=== PATIENT | male | born 1965 | race African-American/Black ===

== ENCOUNTER 2017-10-22 17:59 | Emergency (ER) | payer SELFPAY ==
[~2017-10-22] VITALS: Ht 180.3 cm; Wt 80.0 kg
[2017-10-22] MEDS ORDERED: IOHEXOL 350 MG/ML 10 ML VIAL (for RAD DIAG) IVCONTRAST ONE (18:00)
[2017-10-22 18:26] VITALS: BP 130/101; PULSE 96; RESP 18; TEMP 98.2; O2SAT 97
--- NOTE | 2017-10-22 18:38 | PD ---
HPI Chief Complaint: Cardiac Complaint Time Seen by Provider: 18:17 Travel History International Travel<30 days: No Contact w/Intl Traveler<30days: No Traveled to known affect area: No History of Present Illness HPI 52yo M with PMH of CAD s/p CABG, PVD presents to the ED under police custody complaining of chest pain for 4 days. Said chest pain is squeezing, midsternal and has some left proximal arm numbness. Associated with sob. Denies any fever , abdominal pain initially but has tenderness on palpation. Pt has right leg pain for at least a week and said he is suppose to follow up with surgeon because he has decrease pulse in right leg but did not. Denies any trauma, focal weakness or numbness in legs. Pt admits to sniffing cocaine and is therefore under police custody. PFSH Past Medical History ?: Not Social History Tobacco Use: No Allergies-Medications (Allergen,Severity, Reaction): Coded Allergies: penicillin G (Verified Allergy, Unknown, 10/22/17) Reported Meds & Prescriptions Reported Meds & Active Scripts Active Reported Lasix (Furosemide) 20 Mg Tab 20 Mg PO DAILY Lisinopril 10 Mg Tab 10 Mg PO DAILY Digoxin 0.125 Mg Tab 0.125 Mg PO DAILY Plavix (Clopidogrel Bisulfate) 75 Mg Tab 75 Mg PO DAILY Coreg (Carvedilol) 12.5 Mg Tab 12.5 Mg PO BID Review of Systems Except as stated in HPI: all other systems reviewed are Neg Physical Exam Narrative GENERAL: 52yo M in mild distress. SKIN: Focused skin assessment warm/dry. HEAD: Atraumatic. Normocephalic. EYES: Pupils equal and round. No scleral icterus. No injection or drainage. ENT: No nasal bleeding or discharge. Mucous membranes pink and moist. NECK: Trachea midline. No JVD. CARDIOVASCULAR: Mildly tachycardic. No murmur appreciated. RESPIRATORY: No accessory muscle use. Clear to auscultation. Breath sounds equal bilaterally. GASTROINTESTINAL: Abdomen soft, +Epigastric and LUQ ttp. No rebound tenderness or guarding. MUSCULOSKELETAL: RLE: +DP with doppler. Leg is warm to touch. LLE: DP2+. NEUROLOGICAL: Awake and alert. No obvious cranial nerve deficits. Motor grossly within normal limits in all extremities. Normal speech. PSYCHIATRIC: Appropriate mood and affect; insight and judgment normal. Data Data Last Documented VS Vital Signs Date Time Temp Pulse Resp B/P (MAP) Pulse Ox O2 Delivery O2 Flow Rate FiO2 10/22/17 21:15 10/22/17 21:00 96 18 96 Room Air 10/22/17 18:26 98.2 Orders Orders Basic Metabolic Panel (Bmp) (10/22/17 18:30) Complete Blood Count With Diff (10/22/17 18:30) Magnesium (Mg) (10/22/17 18:30) Prothrombin Time / Inr (Pt) (10/22/17 18:30) Act Partial Throm Time (Ptt) (10/22/17 18:30) Troponin I (10/22/17 18:30) Chest, Single Ap (10/22/17 18:30) Ct Abd/Pel W Iv Contrast(Rout) (10/22/17 ) Lipase (10/22/17 19:04) Clonidine (Catapres) (10/22/17 20:15) Iohexol 350 Inj (Omnipaque 350 Inj) (10/22/17 18:00) Electrocardiogram (10/22/17 18:13) Ed Discharge Order (10/22/17 21:11) Labs Laboratory Tests Test 10/22/17 18:35 White Blood Count 4.5 TH/MM3 Red Blood Count 4.92 MIL/MM3 Hemoglobin 14.1 GM/DL Hematocrit 42.5 % Mean Corpuscular Volume 86.4 FL Mean Corpuscular Hemoglobin 28.8 PG Mean Corpuscular Hemoglobin Concent 33.3 % Red Cell Distribution Width 13.9 % Platelet Count 199 TH/MM3 Mean Platelet Volume 8.6 FL Neutrophils (%) (Auto) 61.1 % Lymphocytes (%) (Auto) 28.5 % Monocytes (%) (Auto) 9.2 % Eosinophils (%) (Auto) 0.4 % Basophils (%) (Auto) 0.8 % Neutrophils # (Auto) 2.7 TH/MM3 Lymphocytes # (Auto) 1.3 TH/MM3 Monocytes # (Auto) 0.4 TH/MM3 Eosinophils # (Auto) 0.0 TH/MM3 Basophils # (Auto) 0.0 TH/MM3 CBC Comment DIFF FINAL Differential Comment Prothrombin Time 11.7 SEC Prothromb Time International Ratio 1.2 RATIO Activated Partial Thromboplast Time 26.6 SEC Blood Urea Nitrogen 9 MG/DL Creatinine 1.34 MG/DL Random Glucose 91 MG/DL Calcium Level 8.8 MG/DL Magnesium Level 2.1 MG/DL Sodium Level 141 MEQ/L Potassium Level 3.6 MEQ/L Chloride Level 109 MEQ/L Carbon Dioxide Level 23.1 MEQ/L Anion Gap 9 MEQ/L Estimat Glomerular Filtration Rate 68 ML/MIN Troponin I LESS THAN 0.02 NG/ML Lipase 64 U/L MDM Medical Decision Making Medical Screen Exam Complete: Yes Emergency Medical Condition: Yes Interpretation(s) EKG: Sinus tachycardia at 105bpm. Normal axis. PVC. TWI I, aVL, V5, V6. Differential Diagnosis Cocaine induced chest pain vs. ACS vs. pancreatitis vs. colitis Narrative Course 52yo M with chest pain for 4 days and has been using cocaine. Pt is under police custody and also complaining of abdominal pain. Pt was seen at the end of my shift so labs, CXR and CT a/p are pending and sign out to next team to follow up and reevaluate. Diagnosis Primary Impression: Chest pain Qualified Codes: R07.9 - Chest pain, unspecified Vianey Saleem DO October 22, 2017 18:38
[2017-10-22] MEDS ORDERED: FURO1TAB62 PO (18:47)
[2017-10-22] MEDS ORDERED: DIGO0.12 PO (18:47)
[2017-10-22] MEDS ORDERED: PLAV75TA29 PO (18:47)
[2017-10-22] MEDS ORDERED: LISI10TA3 PO (18:47)
[2017-10-22] MEDS ORDERED: CARV12.5 PO (18:47)
--- NOTE | 2017-10-22 18:58 | RADRPT ---
EXAM DATE: 10/22/2017 6:54 PM EDT AGE/SEX: 52 years / Male INDICATIONS: Chest pain. CLINICAL DATA: This is the patient's initial encounter. Patient reports that signs and symptoms have been present for 1 day and indicates a pain score of 5/10. MEDICAL/SURGICAL HISTORY: None. CABG. COMPARISON: No prior [facility] exams available for comparison. FINDINGS: A single AP view of the chest demonstrates the lungs to be symmetrically aerated without evidence of mass, infiltrate or effusion. The cardiomediastinal contours are unremarkable. Median sternotomy wir es from prior open heart surgery are noted. Osseous structures are intact. CONCLUSION: No evidence of acute cardiopulmonary process. Median sternotomy wires from prior surgery. Electronically signed by: Laci Richards MD 10/22/2017 6:56 PM EDT
[2017-10-22 19:08] VITALS: BP 183/109; PULSE 102; RESP 18; O2SAT 98
[2017-10-22 19:10] LABS: AUTOMATED NEUTROPHIL # 2.7 TH/MM3 (1.8-7.7); BASOPHIL % 0.8 % (0.0-2.0); EOSINOPHIL % 0.4 % (0.0-4.0); HEMATOCRIT 42.5 % (39.0-51.0); HEMOGLOBIN 14.1 GM/DL (13.0-17.0); LYMPH % 28.5 % (9.0-44.0); LYMPHOCYTE # 1.3 TH/MM3 (1.0-4.8); MEAN CELL VOLUME 86.4 FL (80.0-100.0); MEAN CORPUSCULAR HEMOGLOBIN 28.8 PG (27.0-34.0); MEAN CORPUSCULAR HGB CONC 33.3 % (32.0-36.0); MEAN PLATELET VOLUME 8.6 FL (7.0-11.0); MONO % 9.2 % (0.0-8.0); MONOCYTE # 0.4 TH/MM3 (0-0.9); NEUT % 61.1 % (16.0-70.0); PLATELET COUNT 199 TH/MM3 (150-450); RED BLOOD COUNT 4.92 MIL/MM3 (4.50-5.90); RED CELL DISTRIBUTION WIDTH 13.9 % (11.6-17.2); WHITE BLOOD COUNT 4.5 TH/MM3 (4.0-11.0)
[2017-10-22 19:28] LABS: INTERNATIONAL NORMALIZED RATIO 1.2 RATIO; PROTHROMBIN TIME - PATIENT 11.7 SEC (9.8-11.6)
[2017-10-22 19:36] LABS: BICARBONATE 23.1 MEQ/L (21.0-32.0); BLOOD UREA NITROGEN 9 MG/DL (7-18); CALCIUM 8.8 MG/DL (8.5-10.1); CHLORIDE 109 MEQ/L (98-107); CREATININE 1.34 MG/DL (0.60-1.30); GLOMERULAR FILTRATION RATE 68 ML/MIN (>89); GLUCOSE,RANDOM 91 MG/DL (74-106); MAGNESIUM 2.1 MG/DL (1.5-2.5); SODIUM (NA) 141 MEQ/L (136-145)
[2017-10-22 19:40] LABS: TROPONIN I LESS THAN 0.02 NG/ML (0.02-0.05)
[2017-10-22] MEDS ORDERED: cloNIDine HCL 0.2 MG TAB PO ONE (20:15)
--- NOTE | 2017-10-22 20:41 | RADRPT ---
EXAM DATE: 10/22/2017 8:34 PM EDT AGE/SEX: 52 years / Male INDICATIONS: Abdomen pain. CLINICAL DATA: This is the patient's initial encounter. Patient reports that signs and symptoms have been present for 1 day and indicates a pain score of 5/10. MEDICAL/SURGICAL HISTORY: Cardiovascular disease. Hypertension. Substance abuse None. ORAL CONTRAST: No oral contrast ingested. RADIATION DOSE: 8.18 CTDI (mGy) COMPARISON: No prior [facility] exams available for comparison. TECHNIQUE: Multiple contiguous axial images were obtained through the abdomen and pelvis following b olus infusion of 95 ml Omnipaque 350 (iohexol) nonionic water-soluble contrast as a single exam dos e. No oral contrast ingested. Using automated exposure control and adjustment of the mA and/or kV ac cording to patient size, the radiation dose was kept as low as reasonably achievable to obtain optima l diagnostic quality images. FINDINGS: Lower Lungs: A nodular opacity measuring 2.3 cm is identified in the right lower lobe. Liver: Altered low density structures are identified throughout the liver. They range in size up to 1 .4 cm. There is no evidence of biliary duct dilatation. Liver is otherwise unremarkable. Spleen: Homogeneous density without enlargement. Pancreas: Unremarkable without mass or calcification. Kidneys: Normal in size and shape. No evidence of mass or hydronephrosis. Adrenal Glands: Unremarkable. Aorta: Calcified plaque is present in the abdominal aorta. The left common iliac artery is densely calcified. Luminal narrowing is identified in both common iliac arteries. Bowel/Mesentery: The bowel loops are grossly unremarkable. The cecum and sigmoid colon have a normal configuration. Abdominal Wall: Intact. Retroperitoneum: No evidence of adenopathy in the retrocrural, para-aortic, or deep pelvic regions. Bladder: Contours are smooth. Reproductive Organs: No abnormal masses or calcifications seen. Inguinal: The inguinal region is unremarkable without evidence of adenopathy. Bony Structures: Unremarkable. CONCLUSION: 1. 2.3 cm nodular opacity in the right lower lobe; PET CT is recommended for further evaluation. 2. Multiple low density lesions throughout the liver which are too small to characterize. Early meta static disease is not excluded. 3. Calcific atherosclerotic vascular disease with suspected bilateral common iliac artery luminal st enosis. 4. No other significant abnormality. Electronically signed by: Laci Richards MD 10/22/2017 8:40 PM EDT
[2017-10-22 21:00] VITALS: BP 180/93; PULSE 96; RESP 18; O2SAT 96
--- NOTE | 2017-10-22 21:10 | PD ---
Physical Exam Narrative Patient received in sign out from Dr. Saleem pending CT scan. Laboratory studies are negative. Data Data Last Documented VS Vital Signs Date Time Temp Pulse Resp B/P (MAP) Pulse Ox O2 Delivery O2 Flow Rate FiO2 10/22/17 19:08 102 18 183/109 (133) 98 Room Air 10/22/17 18:26 98.2 Orders Orders Basic Metabolic Panel (Bmp) (10/22/17 18:30) Complete Blood Count With Diff (10/22/17 18:30) Magnesium (Mg) (10/22/17 18:30) Prothrombin Time / Inr (Pt) (10/22/17 18:30) Act Partial Throm Time (Ptt) (10/22/17 18:30) Troponin I (10/22/17 18:30) Chest, Single Ap (10/22/17 18:30) Ct Abd/Pel W Iv Contrast(Rout) (10/22/17 ) Lipase (10/22/17 19:04) Clonidine (Catapres) (10/22/17 20:15) Iohexol 350 Inj (Omnipaque 350 Inj) (10/22/17 18:00) Electrocardiogram (10/22/17 18:13) Labs Laboratory Tests Test 10/22/17 18:35 White Blood Count 4.5 TH/MM3 Red Blood Count 4.92 MIL/MM3 Hemoglobin 14.1 GM/DL Hematocrit 42.5 % Mean Corpuscular Volume 86.4 FL Mean Corpuscular Hemoglobin 28.8 PG Mean Corpuscular Hemoglobin Concent 33.3 % Red Cell Distribution Width 13.9 % Platelet Count 199 TH/MM3 Mean Platelet Volume 8.6 FL Neutrophils (%) (Auto) 61.1 % Lymphocytes (%) (Auto) 28.5 % Monocytes (%) (Auto) 9.2 % Eosinophils (%) (Auto) 0.4 % Basophils (%) (Auto) 0.8 % Neutrophils # (Auto) 2.7 TH/MM3 Lymphocytes # (Auto) 1.3 TH/MM3 Monocytes # (Auto) 0.4 TH/MM3 Eosinophils # (Auto) 0.0 TH/MM3 Basophils # (Auto) 0.0 TH/MM3 CBC Comment DIFF FINAL Differential Comment Prothrombin Time 11.7 SEC Prothromb Time International Ratio 1.2 RATIO Activated Partial Thromboplast Time 26.6 SEC Blood Urea Nitrogen 9 MG/DL Creatinine 1.34 MG/DL Random Glucose 91 MG/DL Calcium Level 8.8 MG/DL Magnesium Level 2.1 MG/DL Sodium Level 141 MEQ/L Potassium Level 3.6 MEQ/L Chloride Level 109 MEQ/L Carbon Dioxide Level 23.1 MEQ/L Anion Gap 9 MEQ/L Estimat Glomerular Filtration Rate 68 ML/MIN Troponin I LESS THAN 0.02 NG/ML Lipase 64 U/L MDM Supervised Visit with [facility]: No Narrative Course Report received was 4 days of chest pain and his initial troponin was negative indicating is likely not cardiovascular in nature. CT abdomen was negative for acute findings. He is asymptomatic and requesting a sandwich. Patient is medically cleared and will be discharged in the custody of the police. Diagnosis Primary Impression: Cocaine abuse Additional Impression: Chest pain Qualified Codes: R07.9 - Chest pain, unspecified Patient Instructions: Chest Pain (ED), Cocaine Abuse (DC), General Instructions Disposition: 01 DISCHARGE HOME Condition: Good Anita Salmon DO October 22, 2017 21:10
--- NOTE | 2017-10-23 14:34 | EKG ---
Date Performed: 10/22/2017 Time Performed: 18:13:57 PTAGE: 52 years EKG: SINUS TACHYCARDIA WITH FREQUENT VENTRICULAR PREMATURE COMPLEXES ATRIAL ABNORMALITY NONSPECI FIC T-WAVE CHANGE ABNORMAL ECG NO PREVIOUS TRACING DOCTOR: Sriram Ashley Interpretating Date/Time 10/23/2017 14:33:09
== END 2017-10-22 21:34 | disposition home or self-care (01) ==
LOC: NEPC 17:59
DX: F14.10 Cocaine abuse, uncomplicated (principal); R07.9 Chest pain, unspecified; I25.10 Atherosclerotic heart disease of native coronary artery without angina pectoris; Z79.02 Long term (current) use of antithrombotics/antiplatelets; Z79.899 Other long term (current) drug therapy
CPT/HCPCS: 71045; 74177; 80048; 83690; 83735; 84484; 85025; 85610; 85730; 93005; 99285; Q9967